=== PATIENT | male | born 2000 | race Caucasian/White ===

== ENCOUNTER 2019-11-27 09:20 | Emergency (ER) | payer OTHER, SELFPAY ==
[2019-11-27 09:20] VITALS: BP 118/76; PULSE 81; RESP 16; TEMP 36.3; O2SAT 97
[2019-11-27 09:30] VITALS: BMI 28.0
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
--- NOTE | 2019-11-27 09:43 | PC.NURSE ---
rad at bs
[2019-11-27 10:00] VITALS: BP 142/77; PULSE 72; RESP 18; O2SAT 99
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
[2019-11-27 11:05] VITALS: BP 142/74; PULSE 78; RESP 16; TEMP 36.6; O2SAT 98
== END 2019-11-27 11:12 | disposition home or self-care (01) ==
PROVIDERS: Emergency Provider Emergency Medicine
DX: S30.1XXA Contusion of abdominal wall, initial encounter (principal); V49.9XXA Car occupant (driver) (passenger) injured in unspecified traffic accident, initial encounter; Y92.488 Other paved roadways as the place of occurrence of the external cause
CPT/HCPCS: 71045; 73502; 73610; 99281; 99282